=== PATIENT | male | born 1995 | race Caucasian/White ===

== ENCOUNTER 2017-03-14 18:26 | Emergency (ER) | payer SELFPAY ==
[~2017-03-14] VITALS: Ht 167.6 cm; Wt 63.5 kg
[~2017-03-14 18:26] MED LIST: HYDROCODONE BIT1 T11 PO; MOTRIN400 MG PO
[2017-03-14] MEDS ORDERED: 'PARAFON FORTE500 M1 PO (18:48)
[2017-03-14] MEDS ORDERED: NAPROSYN500 MG PO (18:48)
== END 2017-03-14 20:54 | disposition home or self-care (01) ==
LOC: ED 18:26
DX: M43.6 Torticollis (principal); R03.0 Elevated blood-pressure reading, without diagnosis of hypertension

== ENCOUNTER 2017-09-29 15:04 | Emergency (ER) | payer SELFPAY ==
[~2017-09-29] VITALS: Ht 170.1 cm; Wt 61.2 kg
[~2017-09-29 15:04] MED LIST changes: +'PARAFON FORTE500 M1 PO; +NAPROSYN500 MG PO
[2017-09-29] MEDS ORDERED: TAMIFLU 75MG CA75 MG PO (15:57)
== END 2017-09-29 16:04 | disposition home or self-care (01) ==
LOC: ED 15:04
DX: B34.9 Viral infection, unspecified (principal); Z79.899 Other long term (current) drug therapy

== ENCOUNTER 2018-03-21 21:45 | Emergency (ER) | payer SELFPAY ==
[~2018-03-21] VITALS: Ht 170.1 cm; Wt 61.2 kg
[~2018-03-21 21:45] MED LIST changes: +TAMIFLU 75MG CA75 MG PO
[2018-03-21 23:18] LABS: BASO # 0.1 10*3/uL (0.0-0.1); BASO % 0.5 % (0.0-1.0); EOS % 0.4 % (1.0-4.0); HEMATOCRIT 41.6 % (42.0-52.0); HEMOGLOBIN 14.1 g/dl (14.0-18.0); LYMPH # 2.5 10*3/uL (1.3-4.4); MEAN CELL VOLUME 88.1 fl (80.0-94.0); MEAN CORPUSCULAR HGB 29.9 pg (27.0-31.0); MEAN CORPUSCULAR HGB CONC 33.9 g/dl (33.0-37.0); MONO % 9.8 % (3.0-9.0); NEUT # 6.9 10*3/uL (2.3-7.9); NEUT % 65.1 % (47.0-73.0); PLATELET COUNT AUTOMATED 164 10*3/uL (130-400); RED BLOOD COUNT 4.72 10*6/uL (4.50-5.90); RED CELL DISTRI WIDTH 13.2 % (0-14.5); WHITE BLOOD COUNT 10.6 10*3/uL (4.8-10.8)
[2018-03-21 23:40] LABS: ALBUMIN 4.1 gm/dl (3.1-4.5); ALKALINE PHOSPHATASE 78 U/L (45-117); BUN 11 mg/dl (7-24); CHLORIDE 107 mmol/L (98-107); CREATININE 0.88 mg/dL (0.70-1.30); POTASSIUM 3.9 mmol/L (3.5-5.1); SGOT/AST 21 IU/L (3-35); SGPT/ALT 24 U/L (12-78); SODIUM 140 mmol/L (136-145); TOTAL PROTEIN 7.3 gm/dL (6.4-8.2)
[2018-03-21] MEDS ORDERED: Motrin,Rufen800 MG PO (23:54)
[2018-03-21] MEDS ORDERED: CYCLOBENZAPRINE5 M3 PO (23:54)
== END 2018-03-22 00:21 | disposition home or self-care (01) ==
LOC: ED 21:45
PROVIDERS: Nurse Practitioner
DX: S16.1XXA Strain of muscle, fascia and tendon at neck level, initial encounter (principal); S39.012A Strain of muscle, fascia and tendon of lower back, initial encounter; F17.200 Nicotine dependence, unspecified, uncomplicated; V89.2XXA Person injured in unspecified motor-vehicle accident, traffic, initial encounter; W22.10XA Striking against or struck by unspecified automobile airbag, initial encounter; Y93.I9 Activity, other involving external motion; Y92.488 Other paved roadways as the place of occurrence of the external cause; Y99.8 Other external cause status

== ENCOUNTER 2018-05-28 23:25 | Emergency (ER) | payer SELFPAY ==
[~2018-05-28] VITALS: Ht 167.6 cm; Wt 59.0 kg
[~2018-05-28 23:25] MED LIST changes: +CYCLOBENZAPRINE5 M3 PO; +Motrin,Rufen800 MG PO
[2018-05-29] MEDS ORDERED: MEDROL DOSEPAK4 MG PO (01:06)
[2018-05-29] MEDS ORDERED: AMOXICILLIN500 M2 PO (01:06)
== END 2018-05-29 01:20 | disposition home or self-care (01) ==
LOC: ED 23:25
DX: J06.9 Acute upper respiratory infection, unspecified (principal)

== ENCOUNTER 2019-04-01 14:46 | Emergency (ER) | payer SELFPAY ==
[~2019-04-01] VITALS: Ht 167.6 cm; Wt 64.4 kg
[~2019-04-01 14:46] MED LIST changes: +AMOXICILLIN500 M2 PO; +MEDROL DOSEPAK4 MG PO
[2019-04-01] MEDS ORDERED: NORCO 5-325 TA1 EACH PO (15:34)
== END 2019-04-01 15:39 | disposition home or self-care (01) ==
LOC: ED 14:46
DX: R51 Headache (principal); R21 Rash and other nonspecific skin eruption; F17.200 Nicotine dependence, unspecified, uncomplicated; Z79.2 Long term (current) use of antibiotics; Z79.899 Other long term (current) drug therapy

== ENCOUNTER 2021-12-08 23:46 | Emergency (ER) | payer SELFPAY ==
[~2021-12-08] VITALS: Ht 170.1 cm; Wt 65.3 kg
[~2021-12-08 23:46] MED LIST changes: +NORCO 5-325 TA1 EACH PO
== END 2021-12-09 00:57 | disposition home or self-care (01) ==
LOC: ED 23:46
DX: S90.32XA Contusion of left foot, initial encounter (principal); W23.0XXA Caught, crushed, jammed, or pinched between moving objects, initial encounter; Y93.89 Activity, other specified; Y92.89 Other specified places as the place of occurrence of the external cause; Y99.9 Unspecified external cause status